=== PATIENT | male | born 1965 | race Caucasian/White ===

== ENCOUNTER 2021-10-08 11:40 | Emergency (ER) | payer BC, OTHER ==
[2021-10-08 11:49] VITALS: TEMP 98.3; BMI 39.3
[2021-10-08 13:24] LABS: BLOOD UREA NITROGEN 18.2 mg/dL (7-18); CALCIUM 9.2 mg/dL (8.5-10.1)
[2021-10-08 13:28] LABS: CREATININE 1.1 mg/dL (0.55-1.3)
[2021-10-08 13:29] LABS: BILIRUBIN,TOTAL 0.5 mg/dL (0.2-1); TOT PROT 7.5 g/dl (6.4-8.2)
[2021-10-08] MEDS ORDERED: LOSARTAN 50MG/HCTZ 12.5MG 1 TAB PO ONE (13:33)
[2021-10-08 13:39] LABS: BASO % 0.8 % (0-2.0); HEMATOCRIT 45.2 % (35.4-49); HEMOGLOBIN 16.3 GM/dL (11.7-16.9); LYMPH % 17.1 % (8-40); MCH 30.3 pg (25.7-33.7); MCHC 36.1 g/dl (32.0-35.9); MEAN CELL VOLUME 83.8 fl (80-96); MEAN PLT VOLUME 7.1 fl (7.5-11.1); MONO % 6.4 % (3.8-10.2); NEUT % 70.7 % (42.8-82.8); PLATELET COUNT 182 10^3/uL (134-434); RDW 13.4 % (11.9-15.9); WHITE BLOOD COUNT 6.3 K/mm3 (4.0-10.0)
[2021-10-08 14:30] VITALS: BP 185/116
[2021-10-08 14:36] VITALS: PULSE 92
== END 2021-10-08 14:39 | disposition home or self-care (01) ==
LOC: JER 11:40
DX: I10 Essential (primary) hypertension (principal)
CPT/HCPCS: 36415; 80053; 85025; 93005; 93010; 99284-25

== ENCOUNTER 2024-02-08 19:22 | Day surgery (SDC) | payer OTHER ==
[2024-02-08] MEDS ORDERED: KETOROLAC TROMETHAMINE 30 MG/1 ML VIAL ONE (21:55)
[2024-02-08] MEDS ORDERED: ONDANSETRON *ODT* 4 MG TABLET ONE (21:55)
[2024-02-08] MEDS: ONDANSETRON *ODT* 4 MG TABLET SL ONE (22:00)
[2024-02-08] MEDS: ACETAMINOPHEN 1000 MG/100 ML BAG IVPB ONE (22:00)
[2024-02-08] MEDS: KETOROLAC TROMETHAMINE 30 MG/1 ML VIAL IM ONE (22:00)
[2024-02-08 22:16] LABS: EPI CELLS 2 /uL (0-25.1); HYALINE CASTS 0 /uL (0-3.1); PH,URINE 5.5 (5.0-8.0); URINE APPEARANCE CLEAR; URINE BACTERIA 0 /uL (0-1359); URINE BILIRUBIN NEGATIVE (NEGATIVE); URINE COLOR YELLOW; URINE GLUCOSE (UA) NEGATIVE (NEGATIVE); URINE KETONE NEGATIVE (NEGATIVE); URINE LEUK ESTERASE NEGATIVE (NEGATIVE); URINE NITRITE NEGATIVE (NEGATIVE); URINE PROTEIN NEGATIVE (NEGATIVE); URINE RBC 51 /uL (0-23.9); URINE UROBILINOGEN 0.2 mg/dL (0.2-1.0); URINE WBC 3 /uL (0-25.8)
[2024-02-09] MEDS ORDERED: TAMSULOSIN HCL 0.4 MG CAP ONE (00:54)
[2024-02-09] MEDS: TAMSULOSIN HCL 0.4 MG CAP PO ONE (01:04)
[2024-02-09] MEDS: SODIUM CHLORIDE 0.9% 500 ML INFUS.BAG IV ONE (01:04)
[2024-02-09 01:16] LABS: BASO % 0.1 % (0-2.0); EOS % 0.6 % (0-4.5); HEMATOCRIT 44.3 % (35.4-49); HEMOGLOBIN 15.8 GM/dL (11.7-16.9); LYMPH % 9.6 % (8-40); MCH 30.6 pg (25.7-33.7); MCHC 35.7 g/dl (32.0-35.9); MEAN CELL VOLUME 85.9 fl (80-96); MONO % 5.2 % (3.8-10.2); NEUT % 84.5 % (42.8-82.8); PLATELET COUNT 168 10^3/uL (134-434); RBC 5.16 M/mm3 (4.00-5.60); RDW 13.4 % (11.9-15.9); WHITE BLOOD COUNT 8.1 K/mm3 (4.0-10.0)
[2024-02-09 01:34] LABS: POTASSIUM 4.2 mmol/L (3.5-5.1)
[2024-02-09 01:37] LABS: CALCIUM 9.5 mg/dL (8.5-10.1)
[2024-02-09 01:38] LABS: ALBUMIN 4.2 g/dl (3.4-5.0); BLOOD UREA NITROGEN 19.8 mg/dL (7-18)
[2024-02-09 01:41] LABS: CREATININE 1.3 mg/dL (0.55-1.3)
[2024-02-09 01:42] LABS: TOT PROT 8.1 g/dl (6.4-8.2)
[2024-02-09 01:43] LABS: BILIRUBIN,TOTAL 0.9 mg/dL (0.2-1)
[2024-02-09] MEDS ORDERED: ONDANSETRON 4 MG/2 ML VIAL IVPUSH PRN (02:44)
[2024-02-09] MEDS: SODIUM CHLORIDE 1,000 ML IV SCH (02:57)
[2024-02-09 07:44] LABS: POTASSIUM 3.9 mmol/L (3.5-5.1)
[2024-02-09 07:46] LABS: CALCIUM 8.8 mg/dL (8.5-10.1)
[2024-02-09 07:48] LABS: ALBUMIN 3.6 g/dl (3.4-5.0)
[2024-02-09 07:51] LABS: CREATININE 1.2 mg/dL (0.55-1.3)
[2024-02-09 07:52] LABS: BILIRUBIN,TOTAL 0.8 mg/dL (0.2-1); TOT PROT 7.2 g/dl (6.4-8.2)
[2024-02-09 07:53] LABS: HEMOGLOBIN 14.6 GM/dL (11.7-16.9); MCH 30.5 pg (25.7-33.7); MCHC 35.7 g/dl (32.0-35.9); MEAN CELL VOLUME 85.6 fl (80-96); MEAN PLT VOLUME 6.8 fl (7.5-11.1); PLATELET COUNT 150 10^3/uL (134-434); RDW 13.3 % (11.9-15.9); WHITE BLOOD COUNT 6.9 K/mm3 (4.0-10.0)
[2024-02-09 09:06] LABS: INR 1.19 (0.83-1.09); PROTHROMBIN TIME (PATIENT) 13.4 SEC (9.7-13.0)
[2024-02-09] MEDS: LORATADINE 10 MG TABLET PO SCH (09:10)
[2024-02-09] MEDS: TAMSULOSIN HCL 0.4 MG CAP PO SCH (09:10)
[2024-02-09] MEDS: amLODIPine BESYLATE 10 MG TABLET (FP) PO SCH (09:10)
[2024-02-09 10:18] VITALS: BMI 29.7
[2024-02-09] MEDS: ACETAMINOPHEN 1000 MG/100 ML BAG IVPB PRN (13:47)
[2024-02-09] MEDS: KETOROLAC TROMETHAMINE 30 MG/1 ML VIAL IVPUSH ONE (20:32)
[2024-02-09] MEDS: TRIMETHOBENZAMIDE HCL 200MG/2ML INJ IM ONE (20:33)
[2024-02-09] MEDS ORDERED: LISINOPRIL 20 MG TABLET PO SCH (22:00)
[2024-02-10] MEDS: LACTATED RINGERS SOLUTION 1,000 ML/1,000 ML INFUS.BAG IV SCH (13:45)
[2024-02-10] MEDS ORDERED: PROPOFOL 20 ML ONE (17:48)
[2024-02-10] MEDS ORDERED: MIDAZOLAM HCL 2 MG/2 ML SINGLE DOSE VIAL ONE ×2 (17:49→19:07)
[2024-02-10] MEDS ORDERED: ONDANSETRON 4 MG/2 ML VIAL ONE (17:50)
[2024-02-10] MEDS ORDERED: LIDOCAINE HCL/PF 2% SDV 5ML VIAL ONE (17:51)
[2024-02-10] MEDS ORDERED: ONDANSETRON 4 MG/2 ML VIAL IVPUSH PRN (18:28)
[2024-02-10] MEDS ORDERED: oxyCODONE HCL 5 MG TABLET PO PRN (18:28)
[2024-02-10] MEDS ORDERED: LACTATED RINGERS SOLUTION 1,000 ML IV SCH (18:30)
[2024-02-10] MEDS: ceFAZolin SODIUM 1 GM VIAL IVPB ONE (19:18)
[2024-02-10] MEDS ORDERED: ceFAZolin SODIUM 1 GM VIAL ONE (19:18)
[2024-02-10] MEDS ORDERED: ACETAMINOPHEN INJECTION 100 ML IVPB ONE (19:27)
[2024-02-10] MEDS ORDERED: KETOROLAC TROMETHAMINE 30 MG/1 ML VIAL ONE (19:32)
[2024-02-10] MEDS: LIDOCAINE HCL 2% JELLY 10 ML CARTRIDGE TP ONE (19:37)
[2024-02-11 01:48] VITALS: RESP 18
[2024-02-11 06:55] VITALS: BP 135/85; PULSE 79; TEMP 97.5
[2024-02-11] MEDS: TAMSULOSIN HCL 0.4 MG CAP PO SCH (08:25)
[2024-02-11] MEDS: amLODIPine BESYLATE 10 MG TABLET (FP) PO SCH (09:47)
[2024-02-11] MEDS: LISINOPRIL 20 MG TABLET PO SCH (09:47)
[2024-02-11] MEDS: LORATADINE 10 MG TABLET PO SCH (09:47)
[2024-02-11] MEDS ORDERED: LISINOPRIL 20 MG TABLET PO SCH (10:00)
== END 2024-02-11 14:09 | disposition home or self-care (01) ==
LOC: JER 19:22 → UNDOADMOB 02-09 02:19 → JERBED 02-09 02:19 → J7W 02-09 06:58 → JERBED 02-09 06:58 → JASUSAT 02-11 11:31 → J7W 02-11 11:36 → JASUSAT 02-11 14:09
PROVIDERS: ATTEND Internal Medicine
PROC: 0TC78ZZ Extirpation of Matter from Left Ureter, Via Natural or Artificial Opening Endoscopic (ICD-10-PCS; principal; 2024-02-11)
PROC: 0T778DZ Dilation of Left Ureter with Intraluminal Device, Via Natural or Artificial Opening Endoscopic (ICD-10-PCS; 2024-02-11)
PROC: BT1FYZZ Fluoroscopy of Left Kidney, Ureter and Bladder using Other Contrast (ICD-10-PCS; 2024-02-11)
DX: N20.1 Calculus of ureter (principal); N40.0 Benign prostatic hyperplasia without lower urinary tract symptoms; N32.89 Other specified disorders of bladder
CPT/HCPCS: 36415; 74176-TC; 76000-TC-FY; 80053; 81003; 85025; 85027; 85610; 86850; 86900; 86901; 87086; 94760; 99285-25; C1747; C1758; C2617; J0131; Q0162